=== PATIENT | male | born 1995 | race Caucasian/White ===

== ENCOUNTER 2021-01-09 21:24 | Emergency (ER) | payer MEDICARE, MEDICAID ==
[~2021-01-09] VITALS: Ht 165.1 cm; Wt 80.0 kg
[2021-01-09 22:31] VITALS: BP 138/89
== END 2021-01-10 00:05 | disposition home or self-care (01) ==
LOC: ER 21:24
DX: R00.2 Palpitations (principal); T42.6X5A Adverse effect of other antiepileptic and sedative-hypnotic drugs, initial encounter; T43.595A Adverse effect of other antipsychotics and neuroleptics, initial encounter; Y92.098 Other place in other non-institutional residence as the place of occurrence of the external cause; F25.0 Schizoaffective disorder, bipolar type
CPT/HCPCS: 93005; 99283